=== PATIENT | female | born 1985 | race Caucasian/White ===

== ENCOUNTER 2016-09-05 02:22 | Emergency (ER) | payer OTHER ==
[~2016-09-05] VITALS: Ht 154.9 cm; Wt 71.2 kg
[~2016-09-05 02:22] MED LIST: BENTYL10 MG PO; CARAFATE1 GM PO; CEFUROXIME500 MG PO; METHADONE HCL40 MG PO; METHADONE1 MG/1 ML PO; MOTRIN800 MG PO; NAPROSYN375 MG PO; NAPROSYN500 MG PO; NAPROXEN500 MG PO; NATALCARE RX1 TABLE1 PO; PEPCID20 MG PO; TYLENOL WITH C1 EACH PO; ULTRAM50 MG PO; ZOFRAN ODT4 MG PO
[2016-09-05] MEDS ORDERED: ZOFRAN4 MG PO (02:45)
[2016-09-05 03:17] LABS: INTERNAL CONTROL VALID? YES
[2016-09-05 03:19] LABS: ADD MIUA? NO; BILIRUBIN NEGATIVE; BLOOD NEGATIVE; COLOR YELLOW ((YELLOW)); GLUCOSE (STRIP) NEGATIVE; KETONES NEGATIVE; LEUKOCYTES NEGATIVE; NITRITE NEGATIVE; PH, URINE 5.5 (5-8); PROTEIN (STRIP) NEGATIVE; SPECIFIC GRAVITY 1.031 (1.000-1.030); UCUL ADDED? NO; UROBILINOGEN 0.2 MG/DL (0.2-1.0)
[2016-09-05 03:43] VITALS: BP 112/67
== END 2016-09-05 03:44 | disposition home or self-care (01) ==
LOC: EME 02:22
PROVIDERS: Physician Assistant
DX: R11.0 Nausea (principal); F17.200 Nicotine dependence, unspecified, uncomplicated; K75.9 Inflammatory liver disease, unspecified
CPT/HCPCS: 81003; 84702; 84703; 99281; 99284